=== PATIENT | male | born 1975 | race Caucasian/White ===

== ENCOUNTER 2017-08-05 20:09 | Emergency (ER) | payer MEDICAID ==
[~2017-08-05] VITALS: Ht 170.2 cm; Wt 94.8 kg
[2017-08-05 20:15] VITALS: Ht 170.2 cm; Wt 94.8 kg
[2017-08-05] MEDS ORDERED: BEN25 PO (20:40)
[2017-08-05] MEDS ORDERED: PRED20TA PO (20:40)
--- NOTE | 2017-08-05 20:42 | ERD ---
ER Documentation Chief Complaint Chief Complaint PT IN C/O "RASH X 1 DAY ALL OVER BODY" HPI This 42-year-old male complains of an itchy rash on his trunk and extremities starting today. Denies any new foods or new medications. Denies any shortness of breath or fevers. Denies any previous history of similar rashes. ROS All systems reviewed and are negative except as per history of present illness. Medications Home Meds Active Scripts Diphenhydramine Hcl* (Benadryl*) 25 Mg Cap, 25 MG PO Q6, #15 CAP Prov:JIMMY CROCKER MD 08/05/17 Prednisone* (Prednisone*) 20 Mg Tab, 40 MG PO DAILY for 4 Days, TAB Start August 06, 2017 Prov:JIMMY CROCKER MD 08/05/17 PMhx/Soc History of Surgery: No Anesthesia Reaction: No Hx Neurological Disorder: No Hx Respiratory Disorders: No Hx Cardiac Disorders: No Hx Psychiatric Problems: No Hx Miscellaneous Medical Probl: No Hx Alcohol Use: Yes (OCCOSSIONAL) Hx Substance Use: No Hx Tobacco Use: No Physical Exam Vitals Vital Signs Date Time Temp Pulse Resp B/P Pulse Ox O2 Delivery O2 Flow Rate FiO2 08/05/17 20:15 97.2 71 18 124/78 96 Physical Exam Const: [] Alert, [id number]. Head: Atraumatic Eyes: Normal Conjunctiva ENT: Normal External Ears, Nose and Mouth. Airway patent. Neck: Full range of motion..~ No meningismus. Resp: Clear to auscultation bilaterally. No wheezing. Cardio: Regular rate and rhythm, no murmurs Abd: Soft, non tender, non distended. Normal bowel sounds Skin: No petechiae or purpura. Diffuse urticarial rash on the trunk and extremities. Back: No midline or flank tenderness Ext: No cyanosis, or edema Neur: Awake and alert Psych: Normal Mood and Affect Results 24 hrs Current Medications Medications (Trade) Dose Ordered Sig/Ramirez Route PRN Reason Start Time Stop Time Status Last Admin Dose Admin Diphenhydramine HCl (Benadryl) 50 mg ONCE ONCE IM 08/05/17 21:00 08/05/17 21:01 Prednisone (Prednisone) 60 mg ONCE ONCE PO 08/05/17 21:00 08/05/17 21:01 Procedures/MDM Presents with signs of acute urticaria without evidence of respiratory distress or anaphylaxis or sepsis or signs to suggest cellulitis or additional emergent causes of presenting complaints. Patient was given Benadryl 50 mg IM and prednisone 60 mg here and will be treated with prednisone and Benadryl and further observation at home, return precautions and primary care follow-up. Departure Diagnosis: Primary Impression: Hives Condition: Stable Patient Instructions: Hives Additional Instructions: Cheque otro vez con carrillo doctor primario en el proximo bustillo or regresa para mas o nueva simptomas. JIMMY CROCKER MD Aug 05, 2017 20:42
[2017-08-05] MEDS ORDERED: predniSONE 20 MG TAB PO ONE (21:00)
[2017-08-05] MEDS ORDERED: DIPHENHYDRAMINE 50 MG INJ IM ONE (21:00)
== END 2017-08-05 21:00 | disposition home or self-care (01) ==
LOC: FTE 20:09
DX: L50.9 Urticaria, unspecified (principal)
CPT/HCPCS: 96372; J1200; J7512; Z7502